=== PATIENT | male | born 1955 | race African-American/Black ===

== ENCOUNTER 2022-01-22 21:33 | Emergency (ER) | payer OTHER ==
[~2022-01-22] VITALS: Ht 180.3 cm; Wt 89.0 kg
--- NOTE | 2022-01-22 21:34 | NUR ---
[facility] TO BED #10
--- NOTE | 2022-01-22 21:42 | NUR ---
DAUGHTER ROLY CALLED [phone] CALLED
[2022-01-22 21:47] VITALS: BP 0/0
--- NOTE | 2022-01-22 21:47 | NUR ---
girl friend called, made aware of situation by jemima
[2022-01-22] MEDS ORDERED: CODE BLUE PARTICIPANT 1 EA MISC MC ONE (21:50)
[2022-01-22] MEDS ORDERED: EPINEPHrine PFS 0.1 MG/ML SYR IVP ONE (21:50)
[2022-01-22] MEDS ORDERED: SODIUM BICARBONATE 8.4% PFS 50 MEQ/50 ML SYR IVP ONE (21:50)
--- NOTE | 2022-01-22 21:51 | NUR ---
66 yo m biba from home with c/c of full arrest. last seen normal 1hr ago. pt was workin outside per girlfirend, went inside to lie down, 1hr later girlfriend went to check, pt was unconcious. presents with io to left tibia, 3 epi rounds given, ns on board. hx:dm, htn unkn allergy and rx
--- NOTE | 2022-01-22 22:17 | NUR ---
[facility] CALLED SPOKE TO CHELSY. REFERRAL NUMBER [phone]. STATES PT IS ELIGABLE FOR TISSUE DONATION
--- NOTE | 2022-01-22 22:29 | NUR ---
SILO OPERATOR CALLED SPOKE TO ROBERT, STATES HE WILL HAVE SOMEONE CALL BACK SOON THEY CAN.
--- NOTE | 2022-01-22 23:06 | NUR ---
RECEIEVED CALL BACK FROM MARKETING REP, HE WOULD LIKE FOR ME TO COLLECT MORE INFO FROM DAUGHTER THEN HE WILL CALL BACK IN 15MINS
--- NOTE | 2022-01-22 23:28 | NUR ---
PRACTICE PROFESSIONAL CASE #[id number]. STATED FAMILY MAY SEE THE PATIENT.
--- NOTE | 2022-01-22 23:48 | NUR ---
PER [employer] FACTORY HELPER STATED TO SEND PT TO OUR [place], PT IS ON FACTORY HELPER HOLD. WILL CALL BACK WHEN THEY FIND PRIMARY AND THEN THEY WILL CALL TO REMOVE HOLD.
--- NOTE | 2022-01-23 02:14 | NUR ---
MOVE PT IN [facility] TO BED 1.
--- NOTE | 2022-01-23 02:26 | NUR ---
[facility] STATES THEY WILL CALL EVERY 4HRS AND WILL ALSO FOLLOW UP WITH ITINERANT TEACHER ASSISTANT.
--- NOTE | 2022-01-23 02:33 | NUR ---
Miguel coleman in ED - 01/23/22 at 0240 by [facility] SPOKE TO PERRY FROM [facility] BIOMATHEMATICIAN, STATES IF A MORTUARY HASNT BEEN PICKED AND WE DONT HAVE A [place] HERE THEN JUST HOLD IN ER UNTIL HOLD IS RELEASED.
--- NOTE | 2022-01-23 03:06 | NUR ---
BODY RELEASED BY DESIGN ENGINEER [employer]IPMENT.
--- NOTE | 2022-01-23 03:06 | NUR ---
MACK CALLED BACK PRIMARY IS ROSENDO SPENCE TIFANG [phone]
--- NOTE | 2022-01-23 03:12 | NUR ---
CALLED [phone] FOR ROSENDO ROLLE, PRIMARY FOR PT. EXCHANGED ANSWERED AND STATED THAT SHE WILL TRY TO GET THE MSG ACROSS BUT MD WILL NOT BE NOTIFED UNTIL MONDAY. STATES SHE WILL CALL BACK IF ANYTHING CHANGES OR HAS ANSWERS.
--- NOTE | 2022-01-23 03:17 | NUR ---
CALLED RADHA, SON OF PT FOR MORTURARY. NO ANSWER. LEFT A MSG.
--- NOTE | 2022-01-23 04:39 | NUR ---
PT OFFLOADED TO 127
== END 2022-01-22 21:48 ==
LOC: MED 21:33
DX: I46.9 Cardiac arrest, cause unspecified (principal)
CPT/HCPCS: 92950; 99285; J0171